=== PATIENT | male | born 1975 | race Caucasian/White ===

== ENCOUNTER 2017-08-28 12:01 | Emergency (ER) | payer SELFPAY ==
[~2017-08-28] VITALS: Ht 165.1 cm; Wt 81.0 kg
[2017-08-28 12:18] VITALS: BP 161/106
[2017-08-28 13:36] LABS: HEMATOCRIT. 49.8 % (42.0-52.0); HEMOGLOBIN. 17.3 g/dL (14.0-18.0); LYMPHOCYTES % 23.5 % (20.0-50.0); MEAN CORPUSCULAR HEMOGLOBIN 30.4 pg (28.0-32.0); MEAN CORPUSCULAR VOLUME 87.7 fL (80.0-94.0); MEAN PLATELET VOLUME 8.2 fl (7.4-10.4); MONOCYTES % 7.9 % (2.0-8.0); NEUTROPHILS % 60.6 % (40.0-76.0); PLATELET 246 x1000/uL (130-400); RED BLOOD CELL COUNT 5.67 mill/uL (4.7-6.1); RED CELL DISTRIBUTION WIDTH 13.9 % (11.6-14.6)
[2017-08-28 13:37] LABS: CHLORIDE 106 mEq/L (98-107)
[2017-08-28 13:40] LABS: ETHANOL BLOOD < 10 mg/dL
== END 2017-08-28 19:45 | disposition left against medical advice (07) ==
LOC: ER 12:31
DX: M54.5 Low back pain (principal); R55 Syncope and collapse; M25.511 Pain in right shoulder; R03.0 Elevated blood-pressure reading, without diagnosis of hypertension; W01.0XXA Fall on same level from slipping, tripping and stumbling without subsequent striking against object, initial encounter; Y92.018 Other place in single-family (private) house as the place of occurrence of the external cause
CPT/HCPCS: 36415; 80048; 85025; 93005; 99285; G0482; A4565